=== PATIENT | male | born 1945 | race Caucasian/White ===

== ENCOUNTER 2022-12-12 13:48 | Observation (INO) | payer MEDICARE ==
[2022-12-12] MEDS ORDERED: SODIUM CHLORIDE 0.9% 500 ML 500 ML IV STA (14:37)
[2022-12-12 15:00] LABS: Basophils % (A) 0 %; Eosinophils # (A) 0.2 k/uL (0-0.7); Eosinophils % (A) 3 %; HCT 46.4 % (39.0-53.0); HGB 15.6 gm/dL (13.0-17.5); Lymphocytes # (A) 1.4 k/uL (1.0-4.8); Lymphocytes % (A) 19 %; MCH 30.1 pg (25.0-35.0); MCHC 33.5 g/dL (31.0-37.0); MCV 89.7 fL (80.0-100.0); Mean Platelet Volume 8.5; Monocytes # (A) 0.5 k/uL (0-1.0); Monocytes % (A) 6 %; Neutrophils # (A) 5.2 k/uL (1.3-7.7); Neutrophils % (A) 70 %; Platelet Count 165 k/uL (150-450); RBC 5.18 m/uL (4.30-5.90); WBC 7.4 k/uL (3.8-10.6)
[2022-12-12 15:08] LABS: INR 0.9 (<1.2); Partial Thromboplastin Time 24.1 sec (22.0-30.0); Prothrombin Time 10.1 sec (9.0-12.0)
[2022-12-12 15:12] LABS: Potassium 4.1 mmol/L (3.5-5.1)
--- NOTE | 2022-12-12 15:12 | XR ---
EXAMINATION TYPE: XR chest 2V DATE OF EXAM: 12/12/2022 COMPARISON: 02/22/2016 HISTORY: 77-year-old male confusion, altered mental status TECHNIQUE: PA and lateral views FINDINGS: Heart normal size. Aorta and pulmonary vasculature within normal limits. Mild interstitial prominence . Hyperinflation. No consolidation or pleural effusion. IMPRESSION: COPD. No acute process seen.
[2022-12-12 15:13] LABS: Albumin 4.2 g/dL (3.5-5.0); Calcium 9.1 mg/dL (8.4-10.2); Total Bilirubin 1.2 mg/dL (0.2-1.3); Total Protein 7.7 g/dL (6.3-8.2)
--- NOTE | 2022-12-12 16:08 | CT ---
EXAMINATION TYPE: CT angio head neck DATE OF EXAM: 12/12/2022 COMPARISON: None HISTORY: left sided weakness CT DLP: 1658 mGycm CONTRAST: Performed with IV Contrast, patient injected with 65 mL of Isovue 370. Combination Contrast CTA cervical carotids and [place] CTA cervical carotids with 3-D recons truction Contrast CTA of the cervical carotids was performed 3-D reconstruction imaging obtained at a separate workstation. Right carotid system: Mild plaque is seen of the right common carotid artery. There is mild plaque a lso noted at the carotid bulb and proximal ICA. Estimated diameter reduction is between 60-70%. ECA is patent. Right vertebral artery appears unremarkable. Left carotid system: Mild plaque is seen of the left common carotid artery. There is moderate mixed plaque also noted at the carotid bulb and proximal ICA. There is stenosis of 85-90% proximal left IC A. ECA is patent. Left vertebral artery appears unremarkable. IMPRESSION: 1. High-grade stenosis proximal left ICA estimated at 85-90%. 2. Right ICA demonstrates stenosis of 60-70%. CTA [place] with 3-D reconstruction Contrast CTA of the [place] was performed 3-D reconstruction imaging obtained at a separate workstation. Vertebrobasilar system as well as intracranial portions of the internal carotid arteries and their ma gt tributaries are patent. I do not see evidence for sizable aneurysm or vascular malformation. Pl ease note MRI provides greater sensitivity and specificity. Visualized brain appears grossly unremar kable. IMPRESSION: 1. No significant abnormality. NASCET criteria was used in interpretation of this exam?
--- NOTE | 2022-12-12 16:23 | CT ---
EXAMINATION TYPE: CT brain wo con DATE OF EXAM: 12/12/2022 COMPARISON: none HISTORY: left sided weakness CT DLP: [address] of the brain was performed. The ventricles, basal cisterns and sulci overlying the cerebral convexities demonstrate mild enlargem ent. There is no evidence for intracranial hemorrhage or sulcal effacement. There is decreased attenuation about the periventricular white matter and deep white matter of both c erebral hemispheres, compatible with chronic small vessel ischemia. Differential diagnosis does inclu de demyelination. No mass effects are seen.No midline shift. Osseous calvarium is intact. If symptoms persist consider MRI. IMPRESSION: 1. Age related atrophic and chronic small vessel ischemic change without acute intracranial process s een at this time.
--- NOTE | 2022-12-12 17:34 | ED ---
General Adult HPI - General Chief complaint: Neuro Symptoms/Deficit Stated complaint: Hypertension Time Seen by Provider: 12/12/22 13:50 Source: patient, EMS Mode of arrival: EMS Limitations: no limitations - History of Present Illness Initial comments: 77-year-old male past medical history of hypertension who presents to the emergency department reporting left hand numbness. States that his symptoms started approximately 30 minutes prior to hospital arrival. He was playing games on his phone and leaning forward landing on his forearm and thought that it had been his positioning. Reports that he switched positions however the sensory change did not alleviate much. He called his family who recommended that he come in for evaluation. Patient arrives hypertensive. States he has a history of hypertension and is supposed to take metoprolol however stopped taking his medication closer year ago because he didn't like the way it made him feel. He is still taking his lisinopril. 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 He denies any chest pain or shortness of breath. The numbness is present in the fingertips of 3 of his fingers on the left hand. The numbness originally radiated up to the elbow however he states that this part of the numbness has improved. 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 He is right-hand dominant. No headaches or visual changes. No numbness or weakness in his legs. No facial droop. No history of stroke. No other alleviating, precipitating or modifying factors - Related Data Home Medications Medication Instructions Recorded Confirmed Tamsulosin HCl [Flomax] 0.4 mg PO DAILY 12/12/22 12/12/22 Previous Rx's Medication Instructions Recorded Albuterol Sulfate [Albuterol 1 puff PO Q4-6H #8.5 gm 12/14/22 Sulfate Hfa] Aspirin 81 mg PO DAILY tab 12/14/22 Atorvastatin [Lipitor] 40 mg PO HS #30 tab 12/14/22 Budesonide-Formot 160-4.5 Mcg 2 puff INHALATION RT-BID #1 each 12/14/22 [Symbicort 160-4.5 Mcg Inhaler] Clopidogrel [Plavix] 75 mg PO DAILY #30 tab 12/14/22 Lisinopril-Hctz 10-12.5 mg 1 each PO BID #60 tab 12/14/22 [Zestoretic 10-12.5] Allergies Allergy/AdvReac Type Severity Reaction Status Date / Time No Known Allergies Allergy Verified 12/12/22 14:13 Review of Systems ROS Statement: Those systems with pertinent positive or pertinent negative responses have been documented in the HPI. ROS Other: All systems not noted in ROS Statement are negative. Past Medical History Past Medical History: Hypertension, Myocardial Infarction ([place]) History of Any Multi-Drug Resistant Organisms: None Reported Past Surgical History: Heart Catheterization With Stent, Tonsillectomy Past Psychological History: PTSD Smoking Status: Former smoker Past Alcohol Use History: None Reported Past Drug Use History: Marijuana General Exam Limitations: no limitations General appearance: alert, in no apparent distress Head exam: Present: atraumatic, normocephalic, normal inspection Eye exam: Present: normal appearance, PERRL, EOMI. Absent: scleral icterus, conjunctival injection, periorbital swelling ENT exam: Present: normal exam, mucous membranes moist Neck exam: Present: normal inspection. Absent: tenderness, meningismus, lymphadenopathy Respiratory exam: Present: normal lung sounds bilaterally. Absent: respiratory distress, wheezes, rales, rhonchi, stridor Cardiovascular Exam: Present: regular rate, normal rhythm, normal heart sounds. Absent: systolic murmur, diastolic murmur, rubs, gallop, clicks GI/Abdominal exam: Present: soft, normal bowel sounds. Absent: distended, tenderness, guarding, rebound, rigid Extremities exam: Present: normal inspection, full ROM, normal capillary refill. Absent: tenderness, pedal edema, joint swelling, calf tenderness Back exam: Present: normal inspection Neurological exam: Present: alert, oriented X3, CN II-XII intact Psychiatric exam: Present: normal affect, normal mood Skin exam: Present: warm, dry, intact, normal color. Absent: rash Course Vital Signs 12/12/22 12/12/22 12/12/22 13:50 14:08 15:15 Temperature 97.5 F L Pulse Rate 89 70 Respiratory 18 18 Rate Blood Pressure 201/101 196/98 175/87 O2 Sat by Pulse 97 98 Oximetry 12/12/22 12/12/22 12/12/22 16:00 17:30 18:00 Temperature Pulse Rate 80 70 68 Respiratory 18 18 18 Rate Blood Pressure 174/88 174/103 184/98 O2 Sat by Pulse 96 95 Oximetry 12/12/22 20:15 Temperature Pulse Rate 76 Respiratory 14 Rate Blood Pressure 180/104 O2 Sat by Pulse 95 Oximetry EKG Findings - EKG Comments: EKG Findings:: EKG demonstrates sinus rhythm with a rate of 70. OH 180. QRS 113. QTC 415. No acute ST segment elevations or depressions Medical Decision Making - Medical Decision Making Was pt. sent in by a medical professional or institution (, KENDRA, WEED SPRAYER, urgent care, hospital, or alf...) When possible be specific @ -No Did you speak to anyone other than the patient for history (EMS, parent, family, police, friend...)? What history was obtained from this source @ -No Did you review nursing and triage notes (agree or disagree)? Why? @ -I reviewed and agree with nursing and triage notes Were old charts reviewed (outside hosp., previous admission, EMS record, old EKG, old radiological studies, urgent care reports/EKG's, alf records)? Report findings @ -No Differential Diagnosis (chest pain, altered mental status, abdominal pain women, abdominal pain men, vaginal bleeding, weakness, fever, dyspnea, syncope, headache, dizziness, GI bleed, back pain, seizure, CVA, palpatations, mental health, musculoskeletal)? @ -CVA, TIA, brain mass, peripheral neuropathy EKG interpreted by me (3pts min.). @ -yes X-rays interpreted by me (1pt min.). @ -yes CT interpreted by me (1pt min.). @ -yes U/S interpreted by me (1pt. min.). @ -None done What testing was considered but not performed or refused? (CT, X-rays, U/S, labs)? Why? @ -None What meds were considered but not given or refused? Why? @ -None Did you discuss the management of the patient with other professionals (professionals i.e. KENDRA Diehl, WEED SPRAYER, lab, RT, psych nurse, social media community manager, sugar laboratory assistant, teacher, bsa officer, business case analyst)? Give summary @ -Admitting physician Dr. Ricardo Was smoking cessation discussed for >3mins.? @ -No Was critical care preformed (if so, how long)? @ -No Were there social determinants of health that impacted care today? How? (Homelessness, low income, unemployed, alcoholism, drug addiction, transp ortation, low edu. Level, literacy, decrease access to med. care, fpc, rehab)? @ -No Was there de-escalation of care discussed even if they declined (Discuss DNR or withdrawal of care, Hospice)? DNR status @ -No What co-morbidities impacted this encounter? (DM, HTN, Smoking, COPD, CAD, Cancer, CVA, ARF, Chemo, Hep., AIDS, mental health diagnosis, sleep apnea, morbid obesity)? @ -htn Was patient admitted / discharged? Hospital course, mention meds given and route, prescriptions, significant lab abnormalities, going to OR and other pertinent info. @ -Upon arrival patient was placed into room 8. history and physical exam is performed. Patient's has an NIH of 0. He reports subjective paresthesias of his left hand however has no sensory deficit upon testing. IV is established and laboratory studies are conducted. Patient is sent for CT and CTA. CTA is remarkable for high-grade stenosis of the left ICA at 85 and 90%. There is right ICA stenosis at 60-70%. Patient remains hypertensive. As he does have significant risk factors for stroke I recommended admission for possible TIA. He was agreeable to this. Spoke with Dr. Ricardo. Vascular and neurology will he be placed on consult Undiagnosed new problem with uncertain prognosis? @ -yes Drug Therapy requiring intensive monitoring for toxicity (Heparin, Nitro, Insulin, Cardizem)? @ -No Were any procedures done? @ -No Diagnosis/symptom? @ -acute left hand paresthesias, cva, acc htn, carotid disease Acute, or Chronic, or Acute on Chronic? @ -acute Uncomplicated (without systemic symptoms) or Complicated (systemic symptoms)? @ -complicated Side effects of treatment? @ -Allergic reaction, sedation Exacerbation, Progression, or Severe Exacerbation? @ -No Poses a threat to life or bodily function? How? (Chest pain, USA, PA, pneumonia, PE, COPD, DKA, ARF, appy, cholecystitis, CVA, Diverticulitis, Homicidal, Suicidal, threat to staff... and all critical care pts) @ -yes - Lab Data Result diagrams: 12/13/22 05:14 12/13/22 05:14 Lab Results 12/12/22 12/12/22 12/12/22 Range/Units 14:46 14:46 14:46 WBC 7.4 (3.8-10.6) k/uL RBC 5.18 (4.30-5.90) m/uL Hgb 15.6 (13.0-17.5) gm/dL Hct 46.4 (39.0-53.0) % MCV 89.7 (80.0-100.0) fL MCH 30.1 (25.0-35.0) pg MCHC 33.5 (31.0-37.0) g/dL RDW 13.0 (11.5-15.5) % Plt Count 165 (150-450) k/uL MPV 8.5 Neutrophils % 70 % Lymphocytes % 19 % Monocytes % 6 % Eosinophils % 3 % Basophils % 0 % Neutrophils # 5.2 (1.3-7.7) k/uL Lymphocytes # 1.4 (1.0-4.8) k/uL Monocytes # 0.5 (0-1.0) k/uL Eosinophils # 0.2 (0-0.7) k/uL Basophils # 0.0 (0-0.2) k/uL PT 10.1 (9.0-12.0) sec INR 0.9 (<1.2) APTT 24.1 (22.0-30.0) sec Sodium 139 (137-145) mmol/L Potassium 4.1 (3.5-5.1) mmol/L Chloride 100 (98-107) mmol/L Carbon Dioxide 30 (22-30) mmol/L Anion Gap 9 mmol/L BUN 18 (9-20) mg/dL Creatinine 1.23 (0.66-1.25) mg/dL Est GFR (CKD-EPI)AfAm 66 (>60 ml/min/1.73 sqM) Est GFR (CKD-EPI)NonAf 57 (>60 ml/min/1.73 sqM) Glucose 105 H (74-99) mg/dL Calcium 9.1 (8.4-10.2) mg/dL Total Bilirubin 1.2 (0.2-1.3) mg/dL AST 26 (17-59) U/L ALT 22 (4-49) U/L Alkaline Phosphatase 84 (38-126) U/L Creatine Kinase 68 (55-170) U/L Troponin I (0.000-0.034) ng/mL Total Protein 7.7 (6.3-8.2) g/dL Albumin 4.2 (3.5-5.0) g/dL 12/12/22 Range/Units 14:46 WBC (3.8-10.6) k/uL RBC (4.30-5.90) m/uL Hgb (13.0-17.5) gm/dL Hct (39.0-53.0) % MCV (80.0-100.0) fL MCH (25.0-35.0) pg MCHC (31.0-37.0) g/dL RDW (11.5-15.5) % Plt Count (150-450) k/uL MPV Neutrophils % % Lymphocytes % % Monocytes % % Eosinophils % % Basophils % % Neutrophils # (1.3-7.7) k/uL Lymphocytes # (1.0-4.8) k/uL Monocytes # (0-1.0) k/uL Eosinophils # (0-0.7) k/uL Basophils # (0-0.2) k/uL PT (9.0-12.0) sec INR (<1.2) APTT (22.0-30.0) sec Sodium (137-145) mmol/L Potassium (3.5-5.1) mmol/L Chloride (98-107) mmol/L Carbon Dioxide (22-30) mmol/L Anion Gap mmol/L BUN (9-20) mg/dL Creatinine (0.66-1.25) mg/dL Est GFR (CKD-EPI)AfAm (>60 ml/min/1.73 sqM) Est GFR (CKD-EPI)NonAf (>60 ml/min/1.73 sqM) Glucose (74-99) mg/dL Calcium (8.4-10.2) mg/dL Total Bilirubin (0.2-1.3) mg/dL AST (17-59) U/L ALT (4-49) U/L Alkaline Phosphatase (38-126) U/L Creatine Kinase (55-170) U/L Troponin I <0.012 (0.000-0.034) ng/mL Total Protein (6.3-8.2) g/dL Albumin (3.5-5.0) g/dL Disposition Clinical Impression: Left hand paresthesia, Carotid disease, bilateral Disposition: ADMITTED IP TO THIS [facility] Condition: Stable Is patient prescribed a controlled substance at d/c from ED?: No Time of Disposition: 17:35 Decision to Admit Reason: Admit from EC Decision Date: 12/12/22 Decision Time: 17:35
[2022-12-12] MEDS ORDERED: NALOXONE 0.4 MG/ML 1 ML VIAL IV PRN (17:35)
[2022-12-12] MEDS ORDERED: MELATONIN 3 MG TABLET PO PRN (18:30)
[2022-12-12] MEDS ORDERED: LACTULOSE 20 GM/30 ML CUP PO PRN (18:30)
[2022-12-12] MEDS ORDERED: ACETAMINOPHEN TAB 325 MG TAB PO PRN (18:30)
[2022-12-12] MEDS ORDERED: LORazepam 0.5 MG TAB PO PRN (18:30)
[2022-12-12] MEDS ORDERED: CALCIUM CARBONATE 500 MG CHEWABLE PO PRN (18:30)
[2022-12-12] MEDS ORDERED: ONDANSETRON 4 MG/2 ML VIAL IVP PRN (18:30)
[2022-12-12] MEDS: ENOXAPARIN 40 MG/0.4 ML SYRINGE SQ SCH (18:37)
--- NOTE | 2022-12-12 19:42 | P.HPIM ---
History of Present Illness H&P Date: 12/12/22 Chief Complaint: Left arm numbness This is a pleasant 77-year-old patient who follows with Dr. Collins. In 2002 patient had a coronary stent. Stop smoking then. He was also put on beta bandar for hypertension did not feel well and decide stop it. He also has spots on his prostate cancer and was offered radiation treatment declined. Did see a urologist for that. He does have ankle arthritis which she takes Motrin. Patient doesn't a baseline she has shortness of breath and wheezing. Patient today was sitting and playing a game on his phone, his elbow and his lef t knee. He then noticed numbness in the area of the region of the fingers and some in the distal forearm. Patient for about 2-3 weeks had been thoroughly little bit of dizzy and some numbness in the feet. No change in vision, swallowing, headache. Some lightheadedness. Review of systems: GEN.: None EYES: None HEENT: None NECK: None RESPIRATORY: Short of breath and wheezing CARDIOVASCULAR: None GASTROINTESTINAL: None GENITOURINARY: P. Symptoms MUSCULOSKELETAL: Ankle arthritis patient on the right LYMPHATICS: None HEMATOLOGICAL: None PSYCHIATRY: None NEUROLOGICAL: As above Past medical history to include: Hypertension, CAD with stent in 2002, BPH, prostate cancer patient has declined radiation treatment, ankle arthritis, COPD Social history: Lives with his ex- and her . Patient smoked for 40 years 2 packs a day stopped about 20 years ago. Physical examination: VITAL SIGNS: 97.5, 89, 18, 201/101, 97% room air GENERAL: BMI 25.8 sitting up, comfortable. EYES: Pupils equal. Conjunctiva normal. HEENT: External appearance of nose and ears normal, oral cavity grossly normal. NECK: JVD not raised; masses not palpable. HEART: First and second heart sounds are normal; no edema. LUNGS: Respiratory rate normal; decreased breath sounds on wheezing. ABDOMEN: Soft, nontender, liver spleen not palpable, no masses palpable. PSYCH: Alert and oriented x3; mood and affect normal. MUSCULOSKELETAL:No Clubbing/cyanosis;muscles-grossly intact. Evidence of OA NEUROLOGICAL: Cranial nerves grossly intact; no facial asymmetry, power and sensation grossly intact. LYMPHATICS: No lymph nodes palpable in the axilla and neck INVESTIGATIONS, reviewed in the clinical context: White count 7.4 hemoglobin 15.6 platelets 165 sodium 139 potassium 4.[address] brain without contrast: Age-related atrophic and chronic small vessel ischemic changes. No acute event noted CT angiogram to neck: High-grade stenosis proximal left ICA estimated 85-90%. Right ICA demonstrates stenosis of 60-70%. Chest x-ray film personally reviewed by me-hyperinflation Assessment and plan: -Possible TIA. The presence of uncontrolled blood pressure some left distal arm numbness. In the index and middle finger on the left side and some distal part of left forearm. Fine touch unremarkable Lacunar infarct possible. MRI brain. Aspirin. Lipitor. Neurology consult -Accelerated hypertension Increase lisinopril hydrochlorothiazide to 12/12.5 twice a day -COPD in a previous smoker Albuterol, Atrovent 3 times a day. Symbicort twice a day -CAD with stent 2002. 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 Aspirin. -Prostate cancer. Mild. Patient had declined radiation treatment in the past. Had followed up with urology in the past -BPH Flomax -Ankle osteoarthritis Pain medications as needed Discussed with patient Past Medical History Past Medical History: Hypertension, Myocardial Infarction ([place]) History of Any Multi-Drug Resistant Organisms: None Reported Past Surgical History: Heart Catheterization With Stent, Tonsillectomy Past Psychological History: PTSD Smoking Status: Former smoker Past Alcohol Use History: None Reported Past Drug Use History: Marijuana Medications and Allergies Home Medications Medication Instructions Recorded Confirmed Type Ibuprofen [Motrin] 800 mg PO TID PRN 12/12/22 12/12/22 History Tamsulosin HCl [Flomax] 0.4 mg PO DAILY 12/12/22 12/12/22 History lisinopriL [Zestril] 5 mg PO DAILY 12/12/22 12/12/22 History Allergies Allergy/AdvReac Type Severity Reaction Status Date / Time No Known Allergies Allergy Verified 12/12/22 14:13 Physical Exam Vitals: Vital Signs Temp Pulse Resp BP Pulse Ox 12/12/22 18:00 68 18 184/98 95 12/12/22 17:30 70 18 174/103 12/12/22 16:00 80 18 174/88 96 12/12/22 15:15 70 18 175/87 98 12/12/22 14:08 196/98 97 12/12/22 13:50 97.5 F L 89 18 201/101 Intake and Output 12/12/22 12/12/22 12/12/22 06:59 14:59 22:59 Other: Weight 81.647 kg Results CBC & Chem 7: 12/12/22 14:46 12/12/22 14:46 Labs: Abnormal Lab Results - Last 24 Hours (Table) 12/12/22 Range/Units 14:46 Glucose 105 H (74-99) mg/dL
--- NOTE | 2022-12-12 20:00 | US ---
EXAMINATION TYPE: US kidneys/renal and bladder DATE OF EXAM: 12/12/2022 COMPARISON: NONE CLINICAL HISTORY: Evaluate for CK D. evaluate for CKD EXAM MEASUREMENTS: Right Kidney: 9.7 x 5.2 x 4.9 cm Left Kidney: 9.9 x 5.5 x 6.0 cm Right Kidney: No hydronephrosis or masses seen Left Kidney: No hydronephrosis or masses seen Bladder: wnl. Pt states he just went to the bathroom and his bladder did not feel full Bilateral Jets seen: Yes There is no evidence for hydronephrosis at this point in time. No nephrolithiasis is seen. No antonia s are identified. The urinary bladder is adequately distended. Bilateral ureteral jets are seen. IMPRESSION: No hydronephrosis is seen bilaterally.
[2022-12-12] MEDS: SYMBICORT 160-4.5 MCG INHALER INHALATION SCH (21:32)
[2022-12-12] MEDS: IPRATROPIUM 0.5 MG/2.5 ML NEBU INHALATION SCH (21:32)
[2022-12-12] MEDS: LISINOPRIL-HCTZ 10-12.5 MG 1 EACH TAB PO SCH (21:32)
[2022-12-12] MEDS: ALBUTEROL NEBULIZED (CONC) 5 MG, SODIUM CHLORIDE 0.9% NEBULIZ 3 ML INHALATION SCH ×2 (21:32)
[2022-12-12] MEDS: ATORVASTATIN 40 MG TAB PO SCH (21:32)
[2022-12-13 00:36] LABS: Appearance,Urine Clear (Clear); Bilirubin,Urine Negative (Negative); Blood,Urine Negative (Negative); Color,Urine Light Yellow; Glucose,Urine (UA) Negative (Negative); Ketones,Urine Negative (Negative); Leukocyte Esterase,Urine Negative (Negative); Nitrite,Urine Negative (Negative); PH, Urine 7.5 (5.0-8.0); Protein,Urine Negative (Negative); Urobilinogen,Urine <2.0 mg/dL (<2.0)
[2022-12-13 03:59] LABS: Chol/HDL Ratio 4.52 Ratio; LDL Cholesterol,Calculated 114.5 mg/dL (0.0-131.0)
[2022-12-13 05:06] VITALS: RESP 16
[2022-12-13] MEDS: SYMBICORT 160-4.5 MCG INHALER INHALATION SCH ×2 (08:18→21:01)
[2022-12-13] MEDS: IPRATROPIUM 0.5 MG/2.5 ML NEBU INHALATION SCH ×3 (08:19→21:01)
[2022-12-13] MEDS: ALBUTEROL NEBULIZED (CONC) 5 MG, SODIUM CHLORIDE 0.9% NEBULIZ 3 ML INHALATION SCH ×6 (08:21→21:02)
[2022-12-13 08:46] LABS: Basophils # (A) 0.07 X 10*3/uL (0.00-0.10); Basophils % (A) 0.8 %; Eosinophils # (A) 0.25 X 10*3/uL (0.04-0.35); HCT 45.1 % (39.6-50.0); HGB 15.1 g/dL (13.0-17.0); Immature Grans, Automated 0.2 %; Lymphocytes # (A) 1.96 X 10*3/uL (0.90-5.00); Lymphocytes % (A) 23.7 %; MCHC 33.5 g/dL (32.0-37.0); MCV 89.5 fL (80.0-97.0); Mean Platelet Volume 11.1 fL (9.5-12.2); Monocytes # (A) 0.77 X 10*3/uL (0.20-1.00); Monocytes % (A) 9.3 %; NRBC Per 100 WBC 0 /100 WBCS (0.0-0.0); Neutrophils # (A) 5.21 X 10*3/uL (1.80-7.70); Platelet Count 184 X 10*3/uL (140-440); RBC 5.04 X 10*6/uL (4.40-5.60); WBC 8.28 X 10*3/uL (4.50-10.00)
[2022-12-13 08:53] LABS: African American GFR (CKD) 68.1 (60.0-200.0); Anion Gap 11.9 mmol/L (10.00-18.00); BUN/Creat Ratio 11.92 Ratio (12.00-20.00); Blood Urea Nitrogen 14.3 mg/dL (9.0-27.0); Calcium 9.2 mg/dL (8.7-10.3); Carbon Dioxide 24.1 mmol/L (20.0-27.5); Non-African American GFR(CKD) 58.8 (60.0-200.0); Potassium 3.7 mmol/L (3.5-5.5)
[2022-12-13] MEDS ORDERED: lisinopriL 5 MG TAB PO SCH (09:00)
[2022-12-13] MEDS: ASPIRIN 81 MG PO SCH (09:26)
[2022-12-13] MEDS: LISINOPRIL-HCTZ 10-12.5 MG 1 EACH TAB PO SCH ×2 (09:26→20:15)
[2022-12-13] MEDS: TAMSULOSIN 0.4 MG CAP.ER.24H PO SCH (09:26)
[2022-12-13] MEDS: ENOXAPARIN 40 MG/0.4 ML SYRINGE SQ SCH (09:27)
--- NOTE | 2022-12-13 09:27 | US ---
EXAMINATION TYPE: US carotid duplex BILAT DATE OF EXAM: 12/13/2022 COMPARISON: CTa neck from yesterday CLINICAL HISTORY: possible TIA. Possible TIA. Hx prior smoker, hx heart attack in 2002, cardiac stent s, hypertension. TECHNIQUE: Carotid duplex ultrasound examination. Indirect Doppler criteria was utilized. FINDINGS: EXAM MEASUREMENTS: RIGHT: Peak Systolic Velocity (PSV) cm/sec ----- Right CCA: 27.3 ----- Right ICA: 104.0 ----- Right ECA: 95.3 ICA/CCA ratio: 3.8 RIGHT: End Diastole cm/sec ----- Right CCA: 7.0 ----- Right ICA: 30.3 ----- Right ECA: 17.6 LEFT: Peak Systolic Velocity (PSV) cm/sec ----- Left CCA: 43.6 ----- Left ICA: 189.6 ----- Left ECA: 123.7 ICA/CCA ratio: 4.3 LEFT: End Diastole cm/sec ----- Left CCA: 9.1 ----- Left ICA: 31.6 ----- Left ECA: 13.9 VERTEBRALS (direction of flow): Right Vertebral: Antegrade Left Vertebral: Antegrade Rhythm: Arrhythmia PRODUCE TEAM LEAD NOTES: Plaque seen within bilateral carotid arteries and bilateral bulbs/bifurcations. *Lack of color Doppler seen within right ECA. Great amount of plaque seen within the right ECA with a bnormal Doppler.* Some flow seen within prox and distal ECA. *Elevated velocities within the left ICA. Right ICA/CCA ratio was 3.8 on the right and 4.3 on the left. Grayscale images show moderate peripheral plaque at the right carotid bulb. Velocity measurements rem ain within normal limits despite elevated ratio. Left shows more severe plaque with elevated peak sys tolic velocity in the abnormal ratio corresponding to findings on CTA. IMPRESSION: Hemodynamically significant stenosis left proximal internal carotid artery estimated near 70% correlates with CTA study one day earlier. Criteria for Assigning % of Stenosis / Diameter reduction (Estimation based on the indirect measurements of the internal carotid artery velocities (ICA PSV). 1. Normal (no stenosis)=ICA PSV < 125 cm/s: ratio < 2.0: ICA EDV<40 cm/s. 2. Less than 50% stenosis=ICA PSV < 125 cm/s: ratio < 2.0: ICA EDV<40 cm/s. 3. 50 to 69% stenosis=ICA PSV of 125 to 230 cm/s: ration 2.0 ? 4.0: ICA EDV 40-100 cm/s. 4. Greater than 70% stenosis to near occlusion= ICA PSV > 230 cm/s: ratio > 4.0: ICA EDV > 100 cm/s. 5. Near occlusion= ICA PSV velocities may be low or undetectable: variable ratio and ICA EDV. 6. Total occlusion=unable to detect flow.
[2022-12-13] MEDS: CLOPIDOGREL 75 MG TAB PO SCH (13:07)
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
--- NOTE | 2022-12-13 17:17 | CA ---
Transthoracic Echo Report Name: David Molina Age: 77 Gender: M : 1945 Exam Date: 12/13/2022 16:09 Exam Location: [facility] Ht (in): 70 Wt (lb): 180 Ordering Physician: Hardik Guerrero MD Attending/Referring Phys: Paper Stacker Maria Antonia Sanchez RDCS Procedure CPT: Indications: Carotid stenosis,? TIA Cardiac Hx: Technical Quality: Fair Contrast 1: Total Dose (mL): Contrast 2: Total Dose (mL): MEASUREMENTS (Male / Female) Normal Values 2D ECHO LV Diastolic Diameter PLAX 6.4 cm 4.2 - 5.9 / 3.9 - 5.3 cm LV Systolic Diameter PLAX 4.4 cm IVS Diastolic Thickness 1.0 cm 0.6 - 1.0 / 0.6 - 0.9 cm LVPW Diastolic Thickness 1.0 cm 0.6 - 1.0 / 0.6 - 0.9 cm LV Relative Wall Thickness 0.3 RV Internal Dim ED PLAX 3.1 cm LA Systolic Diameter LX 3.7 cm 3.0 - 4.0 / 2.7 - 3.8 cm LV Diastolic Volume MOD BP 94.0 cm??? 67 - 155 / 56 - 104 cm??? LV Systolic Volume MOD BP 72.2 cm??? 22 - 58 / 19 - 49 cm??? LV Ejection Fraction MOD BP 23.2 % >= 55 % LV Diastolic Volume MOD 4C 94.6 cm??? LV Systolic Volume MOD 4C 71.2 cm??? LV Ejection Fraction MOD 4C 24.8 % LV Diastolic Length 4C 7.2 cm LV Systolic Length 4C 7.6 cm LV Diastolic Volume MOD 2C 91.3 cm??? LV Systolic Volume MOD 2C 65.6 cm??? LV Ejection Fraction MOD 2C 28.1 % LV Diastolic Length 2C 6.9 cm LV Systolic Length 2C 6.7 cm LA Volume 57.7 cm??? 18 - 58 / 22 - 52 cm??? M-MODE Aortic Root Diameter MM 3.0 cm MV E Point Septal Separation 1.4 cm AV Cusp Separation MM 2.2 cm DOPPLER AV Peak Velocity 100.0 cm/s AV Peak Gradient 4.0 mmHg MV Area PHT 2.9 cm??? Mitral E Point Velocity 67.8 cm/s Mitral A Point Velocity 101.5 cm/s Mitral E to A Ratio 0.7 MV Deceleration Time 260.1 ms MV E' Velocity 4.1 cm/s Mitral E to MV E' Ratio 16.4 TR Peak Velocity 275.4 cm/s TR Peak Gradient 30.3 mmHg Right Ventricular Systolic Press 35.3 mmHg FINDINGS Left Ventricle Left ventricular ejection fraction is estimated at 20-25 %. Moderately increased left ventricular diastolic diameter. Moderately increased left ventricular systolic volume. Severely decreased left ventricular ejection fraction. Right Ventricle Normal right ventricular size. Mild pulmonary hypertension. Right Atrium Normal right atrial size. Left Atrium Normal left atrial size. Mitral Valve Mitral valve thickened. Mild mitral regurgitation. Aortic Valve Trileaflet aortic valve. Aortic valve sclerosis. No aortic valve stenosis or regurgitation. Tricuspid Valve Structurally normal tricuspid valve. Mild tricuspid regurgitation. Pulmonic Valve Structurally normal pulmonic valve. Trace pulmonic regurgitation. Pericardium Normal pericardium. No pericardial effusion. Aorta Normal size aortic root and proximal ascending aorta. CONCLUSIONS Severe LV systolic dysfunction with an ejection fraction of 25% Mild mitral and tricuspid regurgitation Previewed by: Dr. iBll Chino MD (Electronically Signed) Final Date: 13 December 2022 17:16
--- NOTE | 2022-12-13 18:23 | MR ---
EXAMINATION TYPE: MR brain wow/ con DATE OF EXAM: 12/13/2022 COMPARISON: CT brain 12/12/2022 HISTORY: Left forearm distal, radial left fingers numbness TECHNIQUE: Multiplanar, multisequence images of the brain and brainstem is performed without and with IV contras t, utilizing 7.5ml mL intravenous Gadavist . FINDINGS: Diffusion weighted images demonstrate a punctate 1 mm area of high signal on diffusion imag ing with no corresponding signal abnormality is seen by ADC. There is a corresponding FLAIR and T2 ar ea of abnormal signal.. There is a mild to moderate generalized degenerative change with focal diffu se areas of abnormal signal within the white matter which are nonspecific but most typical of remote white matter ischemia.. Midline structures demonstrate normal morphology. The craniocervical junction appears within normal limits. Post contrast images demonstrate no abnormal enhancement. The dural venous sinuses appear pa tent. Changes of chronic mastoiditis. Changes of chronic sinusitis. Orbits are symmetric.. IMPRESSION: 1. Questionable tiny focus of abnormal signal seen on diffusion and present on FLAIR imaging measurin g approximately 1 mm within the jesi. There is no corresponding reduction in signal on ADC map. Favor a more remote area of ischemia rather than subacute ischemia. Recommend correlation with symptoms fo r confirmation. 2. Findings suggestive of sinusitis and left-sided chronic mastoiditis
--- NOTE | 2022-12-13 18:52 | P.PN ---
Progress Note - Text Progress Note Date: 12/13/22 Chief Complaint: Left arm numbness This is a pleasant 77-year-old patient who follows with Dr. Collins. In 2002 patient had a coronary stent. Stop smoking then. He was also put on beta bandar for hypertension did not feel well and decide stop it. He also has spots on his prostate cancer and was offered radiation treatment declined. Did see a urologist for that. He does have ankle arthritis which she takes Motrin. Patient doesn't a baseline she has shortness of breath and wheezing. Patient today was sitting and playing a game on his phone, his elbow and his left knee. He then noticed numbness in the area of the region of the fingers and some in the distal forearm. Patient for about 2-3 weeks had been thoroughly little bit of dizzy and some numbness in the feet. No change in vision, swallowing, headache. Some lightheadedness. 12/13/2022: Slight numbness tingling in the fingers better. Carotid artery stenosis as noted. MRI brain shows abnormal signal in the right jesi. Care was discussed with Dr. Godoy from neurology. Diagnosis of acute on subacute jesi stroke. Continue aspirin and Lipitor. We will watch for another 24 hours. Patient had refused last night dose of blood pressure medications, counselled. total time spent more than 55 minutes Past medical history to include: Hypertension, CAD with stent in 2002, BPH, prostate cancer patient has declined radiation treatment, ankle arthritis, COPD Social history: Lives with his ex- and her . Patient smoked for 40 years 2 packs a day stopped about 20 years ago. Physical examination: VITAL SIGNS: 97.9, 79, 16, 152/85, 95% room air GENERAL: BMI 25.8 declining, comfortable. EYES: Pupils equal. Conjunctiva normal. HEENT: External appearance of nose and ears normal, oral cavity grossly normal. NECK: JVD not raised; masses not palpable. HEART: First and second heart sounds are normal; no edema. LUNGS: Respiratory rate normal; decreased breath sounds on wheezing. ABDOMEN: Soft, nontender, liver spleen not palpable, no masses palpable. PSYCH: Alert and oriented x3; mood and affect normal. MUSCULOSKELETAL:No Clubbing/cyanosis;muscles-grossly intact. Evidence of OA NEUROLOGICAL: Cranial nerves grossly intact; no facial asymmetry, power and sensation grossly intact. INVESTIGATIONS, reviewed in the clinical context: MRI brain: Questionable tiny focus of abnormal signal about 1 mm within the jesi. White count 7.4 hemoglobin 15.6 platelets 165 sodium 139 potassium 4.[address] brain without contrast: Age-related atrophic and chronic small vessel ischemic changes. No acute event noted CT angiogram to neck: High-grade stenosis proximal left ICA estimated 85-90%. Right ICA demonstrates stenosis of 60-70%. Chest x-ray film personally reviewed by me-hyperinflation EKG tracing personally reviewed by me-normal sinus rhythm. Q-wave in inferior leads. Minimal ST/T-wave changes Assessment and plan: -Acute on subacute stroke in the right jesi. The presence of uncontrolled blood pressure some left distal arm numbness. In the index and middle finger on the left side and some distal part of left forearm. Fine touch unremarkable MRI brain results noted. Aspirin. Lipitor. His cousin neurology -Accelerated hypertension Patient concerned importance of taking blood pressure medications. lisinopril hydrochlorothiazide to 20/12.5 twice a day -High grade stenosis proximal left ICA, 85-90%, right ICA stenosis of 60-70%. Aspirin, Plavix, Lipitor. Seen by Dr. Amaya, vascular for outpatient surgery -COPD in a previous smoker Albuterol, Atrovent 3 times a day. Symbicort twice a day -CAD with stent 2002. 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 Aspirin. -Prostate cancer. Mild. Patient had declined radiation treatment in the past. Had followed up with urology in the past -BPH Flomax -Ankle osteoarthritis Pain medications as needed Discussed with patient, Dr. Nieto from neurology. Watch for 24 hours. Hopefully discharge tomorrow.
[2022-12-13] MEDS: ATORVASTATIN 40 MG TAB PO SCH (20:15)
[2022-12-14] MEDS: IPRATROPIUM 0.5 MG/2.5 ML NEBU INHALATION SCH ×2 (07:35→11:16)
[2022-12-14] MEDS: SYMBICORT 160-4.5 MCG INHALER INHALATION SCH (07:35)
[2022-12-14] MEDS: ALBUTEROL NEBULIZED (CONC) 5 MG, SODIUM CHLORIDE 0.9% NEBULIZ 3 ML INHALATION SCH ×4 (07:35→11:18)
[2022-12-14] MEDS: LISINOPRIL-HCTZ 10-12.5 MG 1 EACH TAB PO SCH (08:07)
[2022-12-14] MEDS: ENOXAPARIN 40 MG/0.4 ML SYRINGE SQ SCH (08:07)
[2022-12-14] MEDS: CLOPIDOGREL 75 MG TAB PO SCH (08:07)
[2022-12-14] MEDS: ASPIRIN 81 MG PO SCH (08:07)
[2022-12-14] MEDS: TAMSULOSIN 0.4 MG CAP.ER.24H PO SCH (08:08)
[2022-12-14 08:48] VITALS: BP 132/75; PULSE 77; TEMP 98.1
--- NOTE | 2022-12-14 09:05 | P.PN ---
Subjective Progress Note Date: 12/14/22 Principal diagnosis: carotid stenosis patient seen and evaluated. No new events overnight. No new complaints. Objective - Vital Signs Vital signs: Vital Signs Temp 98.1 F 12/14/22 07:50 Pulse 77 12/14/22 07:50 Resp 16 12/14/22 07:50 BP 132/75 12/14/22 07:50 Pulse Ox 94 L 12/14/22 07:50 FiO2 Intake & Output 12/13/22 12/14/22 12/14/22 18:59 06:59 18:59 Other: Voiding Method Toilet Toilet # Voids 3 2 - Constitutional General appearance: Present: average body habitus, cooperative, no acute distress - EENT Eyes: Present: PERRLA - Respiratory Respiratory: bilateral: CTA - Cardiovascular Rhythm: regular - Neurologic Neurologic: Present: CNII-XII intact - Musculoskeletal Musculoskeletal: Present: strength equal bilaterally - Psychiatric Psychiatric: Present: A&O x's 3, appropriate affect - Labs CBC & Chem 7: 12/13/22 05:14 12/13/22 05:14 Assessment and Plan Assessment: 1. Bilateral carotid stensis left greater than right 2. Left upper extremity paresthesia 3. History of coronary artery disease status post stenting 4. Current daily marijuana smoker 5. Former nicotine dependence Plan: Reviewed carotid Doppler and CTA neck- significant stenosis bilaterally- left worse than the right. Reviewed neurology recommendations- MRI reviewed. Patient will require left sided carotid intervention as outpatient. Would continue aspirin, plavix and statin. Ok for discharge from a vascular standpoint.
--- NOTE | 2022-12-14 11:04 | P.PN ---
Subjective Progress Note Date: 12/14/22 The patient is a 77-year-old male who is seen in neurologic cross coverage on December 14, [address] Guerrero, via telemedicine. The chart has been reviewed. 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 The patient reports resolution of the numbness involving his left fingers. He denies new neurological deficits/symptoms. Objective - Vital Signs Vital signs: Vital Signs Temp 98.3 F 12/14/22 03:31 Pulse 79 12/14/22 03:31 Resp 16 12/14/22 03:31 BP 144/85 12/14/22 03:31 Pulse Ox 96 12/14/22 03:31 FiO2 Intake & Output 12/13/22 12/14/22 12/14/22 18:59 06:59 18:59 Other: Voiding Method Toilet Toilet # Voids 3 2 - Exam Gen.: Patient is reclining in the bed. He is well-nourished, he is in no acute distress. HEENT: Head is atraumatic, normocephalic. Fundus not visualized. There is no scleral icterus. Mucous membranes are moist Neurological examination Mental status: The patient is awake, alert and oriented 3. His speech is clear. Cranial nerves: Pupils are equal, round and reactive to light. Visual box are full to confrontation. Extraocular movements are intact. There is no nystagmus. Facial sensations intact. There is no facial asymmetry. - Labs CBC & Chem 7: 12/13/22 05:14 12/13/22 05:14 Labs: Abnormal Lab Results - Last 24 Hours (Table) 12/13/22 Range/Units 05:14 Est GFR (CKD-EPI)NonAf 58.8 L (60.0-200.0) BUN/Creatinine Ratio 11.92 L (12.00-20.00) Ratio Assessment and Plan Assessment: * MRI of brain reveals a small subacute on chronic infarct involving the right jesi. * Left ICA stenosis, severe degree * Hypertension * Hyperlipidemia * X tobacco use * Noncompliance with medications Plan: 1. Patient is neurologically stable for discharge 2. Continue aspirin, Plavix and statin 3. Follow up with vascular surgery regarding left ICA stenosis 4. Consider cardiology follow-up regarding severely diminished ejection fraction, per 2-D echo Time with Patient: Less than 30 (Spent 25 minutes Kianna for this patient today including, obtaining history, examining the patient, reviewing imaging, labs, chart documentation and creating this note)
--- NOTE | 2022-12-14 15:58 | P.DS ---
Providers Date of admission: 12/12/22 17:35 Expected date of discharge: 12/14/22 Attending physician: Kwesi Ricardo Consults: 12/12/22 17:50 Consult Physician Urgent Consulting Provider: Boubacar Amaya Consult Reason/Comments: ica disease Do you want consulting provider notified?: Yes Consult Physician Urgent Consulting Provider: Hardik Guerrero Consult Reason/Comments: left hand paresthesia Do you want consulting provider notified?: Yes Primary care physician: Adryan Collins [facility] Course: Chief Complaint: Left arm numbness This is a pleasant 77-year-old patient who follows with Dr. Collins. In 2002 patient had a coronary stent. Stop smoking then. He was also put on beta bandar for hypertension did not feel well and decide stop it. He also has spots on his prostate cancer and was offered radiation treatment declined. Did see a urologist for that. He does have ankle arthritis which she takes Motrin. Patient doesn't a baseline she has shortness of breath and wheezing. Patient today was sitting and playing a game on his phone, his elbow and his left knee. He then noticed numbness in the area of the region of the fingers and some in the distal forearm. Patient for about 2-3 weeks had been thoroughly little bit of dizzy and some numbness in the feet. No change in vision, swallowing, headache. Some lightheadedness. 12/13/2022: Slight numbness tingling in the fingers better. Carotid artery stenosis as noted. MRI brain shows abnormal signal in the right jesi. Care was discussed with Dr. Godoy from neurology. Diagnosis of acute on subacute jesi stroke. Continue aspirin and Lipitor. We will watch for another 24 hours. Patient had refused last night dose of blood pressure medications, counselled. total time spent more than 55 minutes December 14: Feeling much better. He'll follow up outpatient with vascular Dr. Amaya. Blood pressure better. Cleared by neurology, follow-up neurology outpatient. Discussed length with the patient. Aspirin Plavix Lipitor. Mild numbness in the left hand fingertips. Past medical history to include: Hypertension, CAD with stent in 2002, BPH, prostate cancer patient has declined radiation treatment, ankle arthritis, COPD Social history: Lives with his ex- and her . Patient smoked for 40 years 2 packs a day stopped about 20 years ago. Physical examination: VITAL SIGNS: 98.1, 74, 77, 16, 132.75, 94% room air GENERAL: BMI 25.8 sitting up in bed, comfortable EYES: Pupils equal. Conjunctiva normal. HEENT: External appearance of nose and ears normal, oral cavity grossly normal. NECK: JVD not raised; masses not palpable. HEART: First and second heart sounds are normal; no edema. LUNGS: Respiratory rate normal; decreased breath sounds ABDOMEN: Soft, nontender, liver spleen not palpable, no masses palpable. PSYCH: Alert and oriented x3; mood and affect normal. MUSCULOSKELETAL:No Clubbing/cyanosis;muscles-grossly intact. Evidence of OA INVESTIGATIONS, reviewed in the clinical context: LDL 114.5 MRI brain: Questionable tiny focus of abnormal signal about 1 mm within the jesi. White count 7.4 hemoglobin 15.6 platelets 165 sodium 139 potassium 4.[address] brain without contrast: Age-related atrophic and chronic small vessel ischemic changes. No acute event noted CT angiogram to neck: High-grade stenosis proximal left ICA estimated 85-90%. Right ICA demonstrates stenosis of 60-70%. Chest x-ray film personally reviewed by me-hyperinflation EKG tracing personally reviewed by me-normal sinus rhythm. Q-wave in inferior leads. Minimal ST/T-wave changes Assessment and plan: -Acute on subacute stroke in the right jesi. The presence of uncontrolled blood pressure some left distal arm numbness. In the index and middle finger on the left side and some distal part of left forearm. Fine touch unremarkable MRI brain results noted. Aspirin. Plavix Lipitor. Seen by neurology -Accelerated hypertension: Better controlled lisinopril hydrochlorothiazide to 20/12.5 twice a day -High grade stenosis proximal left ICA, 85-90%, right ICA stenosis of 60-70%. Aspirin, Plavix, Lipitor. Seen by Dr. Amaya, vascular for outpatient surgery -COPD in a previous smoker Albuterol when necessary.. Symbicort twice a day -CAD with stent 2002. 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 Aspirin. -Prostate cancer. Mild. Patient had declined radiation treatment in the past. Had followed up with urology in the past -BPH Flomax -Ankle osteoarthritis Pain medications as needed Disposition: Home Patient Condition at Discharge: Stable Plan - Discharge Summary New Discharge Prescriptions: New Clopidogrel [Plavix] 75 mg PO DAILY #30 tab Albuterol Sulfate [Albuterol Sulfate Hfa] 1 puff PO Q4-6H #8.5 gm Aspirin 81 mg PO DAILY tab Atorvastatin [Lipitor] 40 mg PO HS #30 tab Budesonide-Formot 160-4.5 Mcg [Symbicort 160-4.5 Mcg Inhaler] 2 puff INHALATION RT-BID #1 each Lisinopril-Hctz 10-12.5 mg [Zestoretic 10-12.5] 1 each PO BID #60 tab Continue Tamsulosin HCl [Flomax] 0.4 mg PO DAILY Discontinued lisinopriL [Zestril] 5 mg PO DAILY Ibuprofen [Motrin] 800 mg PO TID PRN PRN Reason: Pain Discharge Medication List Tamsulosin HCl [Flomax] 0.4 mg PO DAILY 12/12/22 [History] Albuterol Sulfate [Albuterol Sulfate Hfa] 1 puff PO Q4-6H #8.5 gm 12/14/22 [Rx] Aspirin 81 mg PO DAILY tab 12/14/22 [Rx] Atorvastatin [Lipitor] 40 mg PO HS #30 tab 12/14/22 [Rx] Budesonide-Formot 160-4.5 Mcg [Symbicort 160-4.5 Mcg Inhaler] 2 puff INHALATION RT-BID #1 each 12/14/22 [Rx] Clopidogrel [Plavix] 75 mg PO DAILY #30 tab 12/14/22 [Rx] Lisinopril-Hctz 10-12.5 mg [Zestoretic 10-12.5] 1 each PO BID #60 tab 12/14/22 [Rx] Follow up Appointment(s)/Referral(s): Adryan Collins DO [Primary Care Provider] - 1-2 days (please call for an appointment ! ) Boubacar Amaya DO [STAFF PHYSICIAN] - 1 Week (Please call for an appointment for follow up on carotid issues ) Dawn Yo MD [Medical Doctor] - 10 Days (please call for an appointment for numbness and tingling in feet and hands thank you ) Patient Instructions/Handouts: Carotid Artery Disease (GEN), Paresthesia (GEN)
== END 2022-12-14 15:24 ==
LOC: EC 13:48 → 6NMEDSUR 17:35
PROVIDERS: ADMIT Hospitalist; ATTEND Hospitalist
DX: I63.89 Other cerebral infarction (principal); I65.29 Occlusion and stenosis of unspecified carotid artery; I10 Essential (primary) hypertension; R20.0 Anesthesia of skin; Z79.899 Other long term (current) drug therapy; I25.2 Old myocardial infarction; Z95.5 Presence of coronary angioplasty implant and graft; F43.10 Post-traumatic stress disorder, unspecified; Z87.891 Personal history of nicotine dependence; Z98.890 Other specified postprocedural states
CPT/HCPCS: 96372 ×3; 96360; 96361; 99285; 36415; 94640 ×2; 93005; 93306; 80061; 80053; 80048; 82550; 84484; 85025 ×2; 85610; 85730; 81003; 71046; 76770; 93880; 70496; 70450; 70498; 70553; G0378 ×3; J1650 ×3; A9585; Q9967